=== PATIENT | male | born 1960 | race Caucasian/White ===

== ENCOUNTER 2025-06-08 07:11 | Day surgery (SDC) | payer BC ==
[~2025-06-08] VITALS: Ht 180.3 cm; Wt 120.7 kg
[~2025-06-08 07:11] MED LIST: CYCLOPENTOLATE 1% OPHTH SOLN 2 ML BTL OS SCH; LIDOCAINE 3.5% 1 ML OPHTH TOPICAL GEL OU ONE; MIDAZOLAM INJ 2 MG/2 ML VIAL As Ordered ONE; OFLOXACIN 0.3 % (OCUFLOX) OPTH SOL 5ML OS ONE; PHENYLEPHRINE 10% OPHTH SOL 5ML OS PRN; PHENYLEPHRINE 2.5% OPHTH SOL 2ML OS SCH; TROPICAMIDE 1% OPHTH SOLN 15ML OS SCH
[2025-06-08] MEDS ORDERED: LIDOCAINE 3.5% 1 ML OPHTH TOPICAL GEL As Ordered ONE (08:38)
[2025-06-08] MEDS ORDERED: OFLOXACIN 0.3 % (OCUFLOX) OPTH SOL 5ML As Ordered ONE (08:38)
[2025-06-08] MEDS ORDERED: CYCLOPENTOLATE 1% OPHTH SOLN 2 ML BTL As Ordered ONE (08:38)
[2025-06-08] MEDS ORDERED: PHENYLEPHRINE 2.5% OPHTH SOL 2ML As Ordered ONE (08:38)
[2025-06-08] MEDS ORDERED: TROPICAMIDE 1% OPHTH SOLN 15ML As Ordered ONE (08:39)
[2025-06-08] MEDS: LIDOCAINE 1% SDV 5 ML VIAL As Ordered ONE (09:17)
[2025-06-08] MEDS: CEFUROXIME 1 MG/0.1 ML INTRACAMERAL INJ As Ordered ONE (09:17)
[2025-06-08 09:36] VITALS: BP 117/76; TEMP 97.2; O2SAT 95
== END 2025-06-08 09:49 | disposition home or self-care (01) ==
LOC: M SDC 07:11
PROVIDERS: ATTEND Ophthalmology
DX: H25.12 Age-related nuclear cataract, left eye (principal)
CPT/HCPCS: 66984; 92015; J0697; J2250; J3010; V2788